=== PATIENT | female | born 1985 | race Caucasian/White ===

== ENCOUNTER 2018-11-17 11:19 | Emergency (ER) | payer OTHER ==
[~2018-11-17] VITALS: Ht 157.5 cm; Wt 85.0 kg
[~2018-11-17 11:19] MED LIST: AMOXICILLIN875 MG PO; AUGMENTIN875TAB PO; CIPROFLOXACN500 MG PO; EQL IBUPROFEN200 MG PO; LORTAB5 PO; MEDDOSEPAK PO; METRONIDAZOL500 MG PO; NAPROSYN500 MG PO; NO HOME MEDS; PHENTERMINE37.5 M1 PO; TYLENOL 500MG TAB PO; ZOFRAN ODT4 MG SL
[2018-11-17] MEDS ORDERED: CYCLOBENZAPR5 MG PO (12:21)
[2018-11-17 12:31] VITALS: BP 119/74
[2018-11-17] MEDS ORDERED: NO HOME MEDS (12:31)
== END 2018-11-17 12:31 | disposition home or self-care (01) ==
LOC: ED 11:19
DX: S86.912A Strain of unspecified muscle(s) and tendon(s) at lower leg level, left leg, initial encounter (principal); F17.200 Nicotine dependence, unspecified, uncomplicated; X58.XXXA Exposure to other specified factors, initial encounter

== ENCOUNTER 2022-02-15 16:37 | Emergency (ER) | payer OTHER ==
[~2022-02-15] VITALS: Ht 157.5 cm; Wt 70.5 kg
[~2022-02-15 16:37] MED LIST changes: +CYCLOBENZAPR5 MG PO; +FLEXERIL5 M1 PO; +ULTRAM50 MG PO
[2022-02-15 17:18] VITALS: BP 135/89
[2022-02-15 17:30] VITALS: BP 130/88
[2022-02-15 17:46] VITALS: BP 120/75
[2022-02-15] MEDS ORDERED: AMOX/K CLAV875 M1 PO (17:54)
[2022-02-15 18:01] VITALS: BP 135/86
[2022-02-15 18:02] VITALS: BP 135/86
== END 2022-02-15 18:09 | disposition home or self-care (01) ==
LOC: ED 16:37
DX: J02.0 Streptococcal pharyngitis (principal); F17.200 Nicotine dependence, unspecified, uncomplicated

== ENCOUNTER 2022-07-14 19:29 | Emergency (ER) | payer OTHER ==
[~2022-07-14] VITALS: Ht 157.5 cm; Wt 155.0 kg
[~2022-07-14 19:29] MED LIST changes: +AMOX/K CLAV875 M1 PO
[2022-07-14] MEDS ORDERED: BACTRIM DS1 TAB PO (20:23)
[2022-07-14] MEDS ORDERED: TRAMADOL HYDROC50 M1 PO (20:23)
[2022-07-14 21:05] VITALS: BP 126/81
== END 2022-07-14 21:27 | disposition home or self-care (01) ==
LOC: ED 19:29
DX: L02.31 Cutaneous abscess of buttock (principal); F17.210 Nicotine dependence, cigarettes, uncomplicated; Z86.14 Personal history of Methicillin resistant Staphylococcus aureus infection